=== PATIENT | male | born 1950 | race Caucasian/White ===

== ENCOUNTER 2024-01-13 06:15 | Day surgery (SDC) | payer BC, SELFPAY ==
[2023-12-31 08:38] VITALS: BMI 30.1
[2023-12-31 10:10] LABS: Hematocrit 42.4 % (39.0-52.0); Hemoglobin 14.4 g/dL (13.0-18.0); Mean Corpuscular Hgb 34.9 pg (27.0-31.0); Mean Corpuscular Volume 102.7 fL (80.0-94.0); Mean Platelet Volume 9.7 fL (7.4-10.4); Platelet Count 226 10^3/uL (130-400); Red Blood Cell Count 4.13 10^6/uL (4.70-6.10); Red Cell Dist. Width 11.9 % (11.5-14.5); White Blood Cell Count 6.3 10^3/uL (4.8-10.8)
[2023-12-31 10:49] LABS: Blood Urea Nitrogen 22 mg/dl (9-20); Calcium 9.1 mg/dl (8.4-10.2); Carbon Dioxide 29 mmol/L (22-30); Chloride 103 mmol/L (98-107); Estimated Creatinine Clearance 92 ml/min; Glucose 95 mg/dl (70-99); Sodium 139 mmol/L (135-145); eGFR > 60.00
[2024-01-13] VITALS (9 sets, daily range): BP systolic 127–158; BP diastolic 55–78; BMI 30.1
[2024-01-13] MEDS: TYLENOL 1000 MG PO (06:17)
--- NOTE | 2024-01-13 07:02 | HP.FOC2 ---
Focused History & Physical
Chief Complaint
HPI:
Chief Complaint: Right inguinal hernia
HPI / Indication for Planned Procedure: Patient is a 73-year-old male recently seen in outpatient surgical evaluation secondary to a history of right inguinal swelling over the past few months. Previous CT imaging has been suggestive of a right
direct and possible indirect inguinal hernia. Outpatient examination confirmed visible right inguinal swelling soft, reducible hernia. Patient presents today for scheduled operative correction.
Relevant Past Medical History: Other (Pulmonary sarcoidosis, history of nephrolithiasis, gout)
Relevant Social History: Negative
Relevant Family History: Negative
Relevant Past Surgical History: Positive for (Thyroglossal cyst excision, lymph node biopsy, left ureteroscopy, cataracts)
Review of Systems
Review of Pertinent Systems: All Systems Negative
Medication
See Medication form for detailed medications: Yes
Medication List (including Herbals & OTC):
acetaminophen 500 mg tablet 1,000 mg PO PRN PRN discomfort 01/03/24
allopurinol 100 mg tablet 100 mg PO QPM 01/03/24
atorvastatin 40 mg tablet 40 mg PO QPM 01/03/24
diclofenac potassium 50 mg tablet 50 mg PO PRN PRN gout 01/03/24
magnesium 1 tab PO DAILY 01/03/24
metoprolol succinate 25 mg tablet,extended release 24 hr 25 mg PO QPM 01/03/24
Medications Reviewed: Yes
Allergies and Reactions
Patient has Allergies: No
Noted Allergies and Reactions:
Allergy/AdvReac Type Severity Reaction Status Date / Time
NKA - No Known Allergies Allergy NA Uncoded 01/13/24 06:08
Pertinent Physical Exam
All Other Systems: Negative
Head/Neck: Normal
Lungs: Normal
Heart: Normal
Abdomen: Other (Reducible right inguinal hernia)
Extremities: Normal
Neurological: Normal
Diagnosis / Assessment
73-year-old male presenting for scheduled operative correction of symptomatic right inguinal hernia
Plan / Procedure
Robotic assisted laparoscopic repair right inguinal hernia with mesh
Anesthesia/Sedation to be done by Anesthesia Provider: Yes
--- NOTE | 2024-01-13 07:05 | W.SUR.PREOP ---
Pre-Operative Surgical Note
-
I have examined this patient prior to the performance of the scheduled procedure.
The patient's condition is unchanged from the time of the current History and
Physical and the patient is able to undergo the scheduled procedure.
--- NOTE | 2024-01-13 09:24 | W.IMMPOSTOP ---
Addendum entered and electronically signed by Quincy Ma MD 01/13/24 09:33:
#[id number]
Original Note:
Surgical Immed Post Op Note
-
Primary Surgeon: Anil
Assisting Surgeon: Julia Peña PA-C
Pre-op Diagnosis: Right inguinal hernia
Post-op Diagnosis: Right indirect inguinal hernia
Procedure Performed: Robotic assisted laparoscopic LITA repair of right inguinal hernia with mesh; 3D max extra-large regular weight
Anesthesia Type: GETA +0.25% Marcaine
Specimen / Cultures: None
Estimated Blood Loss: 6 mL
Complications: None immediate
Operative Findings: Large right indirect inguinal hernia. Direct and femoral spaces normal. Transabdominal preperitoneal repair. 3D max extra-large regular weight mesh secured to Chaim's ligament with interrupted 2-0 Vicryl. Hernia sac ligated
with 2-0 Vicryl suture ligature. Closure peritoneal flap with 2-0 Monocryl STRATAFIX spiral
The assistance of Julia Peña PA-C was required due to the complexity of the procedure. During the procedure Julia Peña PA-C assisted with retraction, robotic instrumentation/mesh and suture materials exchange as well as incision closure.
== END 2024-01-13 11:05 | disposition home or self-care (01) ==
LOC: SDS 06:15
PROVIDERS: ATTENDING PHYSICIAN Surgery; FAMILY PHYSICIAN Student in an Organized Health Care Education/Training Program
DX: K40.90 Unilateral inguinal hernia, without obstruction or gangrene, not specified as recurrent (principal)
CPT/HCPCS: 49650; 36415; 80048; 85027; 93005; C1781